=== PATIENT | female | born 1960 | race Caucasian/White ===

== ENCOUNTER 2019-01-01 11:12 | Emergency (ER) | payer OTHER ==
[2019-01-01 11:12] VITALS: BP 150/39
[2019-01-01] MEDS ORDERED: methylPREDNISolone SOD SUCC PF 125 MG/2 ML VIAL. IM ONE (11:45)
[2019-01-01] MEDS ORDERED: PRED-220 PO (11:51)
--- NOTE | 2019-01-01 11:51 | PHYS DOC ---
Adult General Chief Complaint Chief Complaint: HIP PAIN [facility] HPI 58-year-old female presents with left hip pain with sciatica. The patient's dates of this started about 5 days ago after she was keeping with her 4-year-old granddaughter. The patient cannot think of any particular injury or inciting event, but woke up the next day with left posterior buttocks pain and radiation down the back of the leg to the foot. She has been trying Flexeril and ibuprofen at home. The sciatic symptoms are mildly improved, but not going away. The patient has not had problems like this in several years. She had epidural injections at L5-S1 about 8 years ago but has had no trouble since then. She denies loss of bowel or bladder. She is able to walk it is just painful. She denies fever or chills. Review of Systems Review of Systems Constitutional: Denies fever or chills [] Eyes: Denies change in visual acuity, redness, or eye pain [] HENT: Denies nasal congestion or sore throat [] Respiratory: Denies cough or shortness of breath [] Cardiovascular: No additional information not addressed in HPI [] GI: Denies abdominal pain, nausea, vomiting, bloody stools or diarrhea [] : Denies dysuria or hematuria [] Musculoskeletal: Left hip pain[] Integument: Denies rash or skin lesions [] Neurologic: Denies headache, focal weakness or sensory changes [] Endocrine: Denies polyuria or polydipsia [] All other systems were reviewed and found to be within normal limits, except as documented in this note. Allergies Allergies Allergies Coded Allergies Type Severity Reaction Last Updated Verified Penicillins Allergy Unknown 01/01/19 Yes levofloxacin Allergy Unknown 01/01/19 Yes Physical Exam Physical Exam Constitutional: Well developed, well nourished, no acute distress, non-toxic appearance. [] HENT: Normocephalic, atraumatic, bilateral external ears normal, oropharynx moist, no oral exudates, nose normal. [] Eyes: PERRLA, EOMI, conjunctiva normal, no discharge. [] Neck: Normal range of motion, no tenderness, supple, no stridor. [] Cardiovascular:Heart rate regular rhythm, no murmur [] Lungs & Thorax: Bilateral breath sounds clear to auscultation [] Abdomen: Bowel sounds normal, soft, no tenderness, no masses, no pulsatile masses. [] Skin: Warm, dry, no erythema, no rash. [] Back: Tenderness over the left sacroiliac joint.[] Extremities: No tenderness, no cyanosis, no clubbing, ROM intact, no edema. [] Neurologic: Alert and oriented X 3, normal motor function, normal sensory function, no focal deficits noted. [] Psychologic: Affect normal, judgement normal, mood normal. [] Current Patient Data Vital Signs Vital Signs Date Time Temp Pulse Resp B/P (MAP) Pulse Ox O2 Delivery O2 Flow Rate FiO2 01/01/19 11:12 Room Air EKG EKG [] Radiology/Procedures Radiology/Procedures [] Course & Med Decision Making Course & Med Decision Making Pertinent Labs and Imaging studies reviewed. (See chart for details) Based on the history and physical exam, I believe the patient is having sacr oiliac inflammation with sciatica. I will give her 125 of Solu-Medrol as well as a prednisone taper. I will advise that she continue her Flexeril. She can also ice the area. She will follow-up with her primary physician if this does not improve. She is stable for discharge at this time. [] Dragon Disclaimer Dragon Disclaimer This electronic medical record was generated, in whole or in part, using a voice recognition dictation system. Departure Departure: Impression: Primary Impression: Pain of left sacroiliac joint Additional Impression: Sciatica, left side Disposition: HOME, SELF-CARE Condition: STABLE Referrals: MARC JETER DO (PCP) Patient Instructions: Sacroiliac Joint Dysfunction, Sciatica with Rehab- [facility] Prednisone (PREDNISONE) 10 Mg Tablet 10 MG PO UD for PREDNISONE TAPER, #27 TAB 0 Refills Take 4 tablets by mouth daily for 3 days, then take 3 tablets by mouth daily for 3 days, then take 2 tablet by mouth daily for 2 days, then take 1 tablet by mouth daily x 2 days, then stop. Prov: PEDRO MARTINEZ DO 01/01/19 Problem Qualifiers PEDRO MARTINEZ DO Jan 01, 2019 11:51
== END 2019-01-01 12:04 | disposition home or self-care (01) ==
LOC: ER 11:12
DX: M53.3 Sacrococcygeal disorders, not elsewhere classified (principal); M54.32 Sciatica, left side; Z88.0 Allergy status to penicillin; Z88.1 Allergy status to other antibiotic agents
CPT/HCPCS: 96372; 99283; J2930

== ENCOUNTER → 2019-06-21 | Outpatient (CLI) | payer OTHER ==
[~2019-06-21] MED LIST: BIOT5TAB PO; BUPR150T15 PO; CETI10TA24 PO; GABA600T7 PO; MELA10TA3 PO; MULT-245 PO; NAPR-514 PO; OMEG1CAP6 PO; PRED-220 PO; TRAZ-120 PO
[2019-06-21 13:50] VITALS: BP 130/67
== END | disposition home or self-care (01) ==
LOC: SURG 13:14
PROVIDERS: ATTEND Anesthesiology Pain Medicine
DX: M51.16 Intervertebral disc disorders with radiculopathy, lumbar region (principal); M19.90 Unspecified osteoarthritis, unspecified site; Z79.899 Other long term (current) drug therapy
CPT/HCPCS: 99203

== ENCOUNTER → 2019-07-20 | Outpatient (CLI) | payer OTHER ==
[~2019-07-20] MED LIST changes: +0.9 % SODIUM CHLORIDE 10 ML VIAL ONE; +IOHEXOL 300 MG/ML 50 ML VIAL. ONE; +LIDOCAINE 1% PF 30 ML VIAL. ONE; +methylPREDNISolone ACETATE 80 MG/ML VIAL. ONE
[2019-07-20 10:31] VITALS: BP 97/68
== END | disposition home or self-care (01) ==
LOC: SURG 09:45
PROVIDERS: ATTEND Anesthesiology Pain Medicine
DX: M51.16 Intervertebral disc disorders with radiculopathy, lumbar region (principal); M54.5 Low back pain; M19.90 Unspecified osteoarthritis, unspecified site; Z88.0 Allergy status to penicillin; Z88.8 Allergy status to other drugs, medicaments and biological substances; Z79.899 Other long term (current) drug therapy
CPT/HCPCS: 62323; J1040; J2001; Q9967

== ENCOUNTER → 2020-10-16 | Day surgery (SDC) | payer OTHER ==
[~2020-10-16] MED LIST changes: -0.9 % SODIUM CHLORIDE 10 ML VIAL ONE; -CETI10TA24 PO; +CETI10TA74 PO; -IOHEXOL 300 MG/ML 50 ML VIAL. ONE; -LIDOCAINE 1% PF 30 ML VIAL. ONE; -methylPREDNISolone ACETATE 80 MG/ML VIAL. ONE
[2020-10-16 10:04] VITALS: BP 120/70
== END | disposition home or self-care (01) ==
LOC: SURG 09:58
PROVIDERS: ATTEND Anesthesiology
DX: M54.12 Radiculopathy, cervical region (principal); G89.4 Chronic pain syndrome; Z79.899 Other long term (current) drug therapy; Z88.0 Allergy status to penicillin; M19.90 Unspecified osteoarthritis, unspecified site
CPT/HCPCS: 99214; G0463